=== PATIENT | male | born 1985 | race Caucasian/White ===

== ENCOUNTER 2018-03-23 20:12 | Inpatient (IN) | payer BC ==
[~2018-03-23 20:12] MED LIST: ISOVUE-370 76%-LOCM 1 ML ONE
[2018-03-23] MEDS ORDERED: Morphine 10 MG/ML VIAL ONE (20:40)
[2018-03-23] MEDS ORDERED: Ondansetron HCl/PF 4 MG/2 ML Vial ONE (20:40)
[2018-03-23 20:56] LABS: ALT (SGPT) 39 U/L (8-55); AST (SGOT) 19 U/L (5-34); Albumin 4.5 g/dL (3.5-5.0); Alkaline Phosphatase 50 U/L (40-150); Anion Gap 15 mmol/L (10-20); BUN (Urea Nitrogen) 20 mg/dL (8.9-20.6); Bilirubin, Total 2.3 mg/dL (0.2-1.2); Calc. Creatinine Clearance 0 mL/min (70-130); Calcium 8.6 mg/dL (7.8-10.44); Carbon Dioxide 20 mmol/L (22-29); Chloride 102 mmol/L (98-107); Estimated GFR-MDRD 89; Globulin 2.8 g/dL (2.4-3.5); Glucose 110 mg/dL (70-105); Lipase 8 U/L (8-78); Potassium 3.4 mmol/L (3.5-5.1); Protein, Total 7.3 g/dL (6.0-8.3); Sodium 134 mmol/L (136-145)
[2018-03-23 21:16] LABS: Hemoglobin 14.9 g/dL (14.0-18.0); Mean Corpuscular HGB CONC 34.7 g/dL (32.0-36.0); Mean Corpuscular Hemoglobin 32.5 pg (27.0-31.0); Mean Corpuscular Volume 93.6 fL (78.0-98.0); Mean Platelet Volume 6.5 fL (7.4-10.4); Platelet Count 324 thou/uL (130-400); RBC Distribution Width 11.7 % (11.5-14.5); Red Blood Cell (RBC) Count 4.59 mill/uL (4.70-6.10); White Blood Cell (WBC) Count 12.6 thou/uL (4.8-10.8)
[2018-03-23] MEDS ORDERED: metroNIDAZOLE 500 MG/100 ML BAG ONE (21:41)
[2018-03-23 21:43] LABS: Band 18 % (5-11); Lymphocytes 8 % (21-51); MDiff Complete? YES; Monocytes 5 % (0-10); Neutrophil 69 % (42-75)
--- NOTE | 2018-03-23 21:43 | RAD ---
PORTABLE AP CHEST X-RAY 03/23/18 HISTORY: Abdominal cramping and bilateral flank pain. Nausea, vomiting and diarrhea. FINDINGS: The cardiac silhouette is magnified by projection. Pulmonary vasculature is within normal limits. The lungs are clear. [place] screws overlie the left humeral head. IMPRESSION: No acute cardiopulmonary process. POS: [facility]
--- NOTE | 2018-03-23 22:03 | CT ---
CT ABDOMEN AND PELVIS WITH IV CONTRAST: 03/23/18 HISTORY: Abdominal cramping and pain. Bilateral flank pain. Nausea and vomiting and diarrhea since last night. COMPARISON: None available. FINDINGS: There is dependent bibasilar atelectasis. The osseous structures are intact. There is decreased attenuation of the liver likely related to diffuse fatty infiltration. The spleen, pancreas, bilateral adrenal glands, kidneys, abdominal aorta, and decompressed urinary bl adder demonstrate a normal CT appearance. The colon is fluid filled but not dilated. The appendix is visualized and normal in caliber. Loops of small bowel are also normal in caliber. No free fluid or fluid collection is seen in the abdomen or pelvis. No enlarged lymph nodes are seen by CT size criteria. IMPRESSION: 1. No acute findings are seen in the abdomen or pelvis. 2. Diffuse fatty infiltration of the liver. The liver is enlarged in craniocaudal dimensions venus suring 23.8 cm. 3. Colon is fluid filled but not dilated. 4. No CT evidence of appendicitis. 5. Small fat containing right inguinal hernia. POS: [facility]
[2018-03-23 22:14] LABS: Bilirubin Negative (Negative); Blood, Urine Small (Negative); Clarity CLEAR (Clear); Glucose, Urine (Dipstick) Negative (Negative); Leukocyte Negative (Negative); Nitrite Negative (Negative); Protein, Urine (Dipstick) Negative (Neg-Trace); Urobilinogen 0.2 mg/dL (0.2-1.0); pH, Urine 5.5 (5.0-9.0)
[2018-03-23 22:17] LABS: Bacteria/HPF None Seen HPF (None Seen); Hyaline Casts/LPF 0-3 HYALINE CAST LPF (0-3 Hyaline); Pathc Cast-AUWi Flag 0.43 (0-2.49); Squamous Epithelial None Seen HPF (0-3); WBC/HPF 0-3 HPF (0-3)
[2018-03-23 22:48] LABS: Specific Gravity, Urine Greater than 1.060 (1.002-1.036)
[2018-03-24 00:29] LABS: Lactic Acid 1.6 mmol/L (0.5-2.2)
[2018-03-24] MEDS ORDERED: Ondansetron HCl/PF 4 MG/2 ML Vial IVP PRN (01:05)
[2018-03-24] MEDS ORDERED: Ondansetron ODT 4 MG TAB SL PRN (01:05)
[2018-03-24] MEDS: Sodium Chloride 0.9% 1,000 ML IV SCH ×5 (01:16→21:36)
[2018-03-24 01:24] VITALS: BMI 31.7
[2018-03-24] MEDS ORDERED: metroNIDAZOLE 500 MG in Premix Bag 1 BAG IVPB SCH (06:00)
[2018-03-24 07:05] LABS: Hemoglobin 13.1 g/dL (14.0-18.0); Mean Corpuscular HGB CONC 34.2 g/dL (32.0-36.0); Mean Corpuscular Hemoglobin 32.5 pg (27.0-31.0); Mean Platelet Volume 6.9 fL (7.4-10.4); Platelet Count 270 thou/uL (130-400); RBC Distribution Width 11.7 % (11.5-14.5); Red Blood Cell (RBC) Count 4.02 mill/uL (4.70-6.10); White Blood Cell (WBC) Count 9.5 thou/uL (4.8-10.8)
[2018-03-24 09:01] LABS: Band 27 % (5-11); Lymphocytes 16 % (21-51); MDiff Complete? YES; Metamyelocyte 1 % (0-0); Monocytes 6 % (0-10); Neutrophil 49 % (42-75); PLT Morphology Comment Appears Adequate; Reactive Lymphocytes 1 % (0-10); Toxic Granulation SLIGHT; Vacuoles SLIGHT
[2018-03-24] MEDS ORDERED: Loperamide HCl 2 MG CAP PO PRN (09:58)
--- NOTE | 2018-03-24 10:57 | HP ---
ADMITTING PHYSICIAN: Freddy Alves M.D. HISTORY OF PRESENT ILLNESS: The patient is a 32-year-old male who presented to the emergency room co mplaining of nausea, vomiting, diarrhea, abdominal pain. He has been noticing symptoms for approxima tely 36 hours. The patient reports prior to becoming sick he had eaten some sushi. He noted after t hat he began having lower back pain associated with vomiting and progressing into diarrhea. He felt like he may have passed some blood in his stool. He continued to have this, he has had up to 12 epis odes of diarrhea with vomiting. He felt like he was becoming weak, dehydrated and he brought himself to the emergency room. In the ER, he was found to be slightly hypotensive, tachycardic with a tempe rature of 100.2. He was placed on IV fluids. Otherwise, no other medical issues were noted. He has not noted any recent foreign travel. He does note he ate sushi. He also notes he ate some [employer] as well. Otherwise, no other medical compl aints. No cough, sore throat. He does note, like I said, some bilateral back pain. He states, "I h urt in my kidneys," but no pain with urination is otherwise noted. Otherwise, no other medical compl aints. ALLERGIES: He has no medication allergies. CURRENT MEDICATIONS: Claritin as needed for seasonal allergies. PAST MEDICAL HISTORY: He has had previous history of shoulder scoping for surgery. Medical history is otherwise positive for allergic rhinitis. FAMILY HISTORY: Noncontributory. SOCIAL/PERSONAL HISTORY: He is . He does not smoke. He drinks alcohol socially. REVIEW OF SYSTEMS: GASTROINTESTINAL: Positive as above. GENITOURINARY: Negative. CARDIOVASCULAR: Negative. RESPIRATORY: Negative. NEUROLOGIC: Otherwise, negative. PHYSICAL EXAMINATION: VITAL SIGNS: Temperature 100.3, pulse 115, respirations 18, O2 sats 95, BP 98/58. HEENT: Normocephalic, atraumatic. Sclerae and conjunctivae clear. NECK: Supple, full range of motion, no masses. LUNGS: Clear. CARDIOVASCULAR: Heart reveals a regular rate and rhythm without murmur, gallops or rubs, although th ere is a tachycardia, otherwise noted. ABDOMEN: Soft. There is minimal tenderness noted to the left and right lower quadrant area without rebound or guarding Bowel sounds are present and active. No hepatosplenomegaly is noted. EXTREMITIES: No evidence of clubbing, edema or cyanosis. SKIN: No lesions or rashes otherwise noted. NEUROLOGICAL: He is alert and oriented x3. LABORATORY: His admission hemoglobin is 14.9, hematocrit 43.0, white blood count 12.6 with 69 neutro phils, 18 bands, 8 lymphs. Sodium 134, potassium 3.4, chloride 102, CO2 20, BUN 20, creatinine 0.97. Lactic acid is 2.8, it has now decreased down to 1.6. Urinalysis otherwise clear. CT abdomen, no acute finding, diffuse fatty infiltration of liver. IMPRESSION: This is a 32-year-old male presents with probable colitis, would suspect some type of en teric species, possibly related to sushi ingestion. PLAN: 1. Blood cultures have been obtained, unfortunately no stool cultures have been obtained. 2. He is currently on Levaquin and Flagyl. We will continue those antibiotics for the time being. 3. Continue IV fluids. 4. Control nausea with ondansetron. 5. I have discussed the findings with the patient, need for hospitalization. He is in agreement.
[2018-03-24] MEDS: Acetaminophen 325 MG TAB PO PRN ×2 (12:50→20:20)
[2018-03-24] MEDS: metroNIDAZOLE 500 MG in Premix Bag 1 BAG IVPB SCH ×2 (13:57→21:35)
[2018-03-25 04:33] LABS: Anion Gap 13 mmol/L (10-20); BUN (Urea Nitrogen) 6 mg/dL (8.9-20.6); Calc. Creatinine Clearance 214 mL/min (70-130); Calcium 8.2 mg/dL (7.8-10.44); Carbon Dioxide 24 mmol/L (22-29); Chloride 104 mmol/L (98-107); Estimated GFR-MDRD Greater than 90; Glucose 100 mg/dL (70-105); Potassium 3.5 mmol/L (3.5-5.1); Sodium 137 mmol/L (136-145)
[2018-03-25 04:54] LABS: Band 6 % (5-11); Eosinophils 1 % (0-10); Hemoglobin 12.7 g/dL (14.0-18.0); Lymphocytes 21 % (21-51); MDiff Complete? YES; Mean Corpuscular HGB CONC 35.4 g/dL (32.0-36.0); Mean Corpuscular Hemoglobin 33.3 pg (27.0-31.0); Mean Corpuscular Volume 94.1 fL (78.0-98.0); Mean Platelet Volume 6.5 fL (7.4-10.4); Monocytes 9 % (0-10); Neutrophil 63 % (42-75); PLT Morphology Comment Appears Adequate; Platelet Count 240 thou/uL (130-400); RBC Distribution Width 11.4 % (11.5-14.5); Red Blood Cell (RBC) Count 3.81 mill/uL (4.70-6.10); White Blood Cell (WBC) Count 9.5 thou/uL (4.8-10.8)
[2018-03-25] MEDS: Acetaminophen 325 MG TAB PO PRN ×3 (05:06→19:47)
[2018-03-25] MEDS: metroNIDAZOLE 500 MG in Premix Bag 1 BAG IVPB SCH ×3 (05:06→21:26)
[2018-03-25] MEDS: Sodium Chloride 0.9% 1,000 ML IV SCH ×5 (05:08→20:30)
--- NOTE | 2018-03-25 07:53 | PRG ---
DATE OF SERVICE: 03/25/2018 Mr. Walters is feeling better. He does report some central chest pain yesterday. He states all the p ain is gone now. He felt like someone was sitting on his chest. Otherwise, he states he is feeling better. He has had no further vomiting. The diarrhea stopped. He has not been able to collect a st ool specimen. PHYSICAL EXAMINATION: VITAL SIGNS: Temperature 98.3, pulse 92, BP 115/79. LUNGS: Clear. CHEST: Reveals no tenderness. ABDOMEN: Soft, bowel sounds present and active. VITAL SIGNS: His T-max yesterday 101.4, he is now afebrile. LABORATORY: Microbiology: Urine culture, no growth. Blood culture, no growth. IMPRESSION: 1. Probably gastroenteritis, infectious. still suspect some type of food contamination. 2. Chest pain. PLAN: 1. Patient will have CT angio of the chest today. 2. We will get SCDs applied. 3. Continue current treatment regimen of levofloxacin and Flagyl.
--- NOTE | 2018-03-25 08:02 | EKG ---
Test Reason : C/O CHEST PAIN Blood Pressure : / mmHG Vent. Rate : 117 BPM Atrial Rate : 117 BPM P-R Int : 152 ms QRS Dur : 100 ms QT Int : 332 ms P-R-T Axes : 052 059 038 degrees QTc Int : 463 ms Sinus tachycardia repolarization variant st changes Otherwise normal ECG When compared with ECG of 23-MAR-2018 20:33, (Unconfirmed) Questionable change in QRS axis Confirmed by DR. Brigitte ESPARZA ([id number]) on 03/25/2018 8:02:05 AM Referred By: CECILIO PERDOMO Confirmed By:DR. Brigitte ESPARZA
--- NOTE | 2018-03-25 10:41 | CT ---
CT ANGIO OF CHEST PERFORMED WITH INTRAVENOUS CONTRAST ENHANCEMENT WITH 3D RECONSTRUCTIONS. HISTORY: Shortness of breath, chest pressure, and tightness and chest pain. COMPARISON: A 03/23/18 CT of the abdomen. FINDINGS: There is worsening bibasilar atelectatic lung change is seen as compared to the previous CT of the ab domen. There is no pleural effusion. Changes are slightly grater in the right lung base. AP dimension of the ascending thoracic aorta is 4.0 cm. I do not see any signs of dissection. There is no significant mediastinal, hilar, or axillary adenopathy. There is good pulmonary artery opacification obtained, there is no CT evidence for pulmonary embolus. There are diffuse fatty changes of the liver. IMPRESSION: 1. Worsening bibasilar atelectasis. 2. No CT evidence of pulmonary embolus. 3. AP dimension of the ascending aorta is 4.0 cm. 4. Diffuse fatty changes of the liver. POS: [facility]
[2018-03-25] MEDS ORDERED: ISOVUE-370 76%-LOCM 1 ML ONE (14:19)
[2018-03-26] MEDS: metroNIDAZOLE 500 MG in Premix Bag 1 BAG IVPB SCH (05:45)
[2018-03-26 07:32] VITALS: BP 126/88; TEMP 98
--- NOTE | 2018-03-26 08:03 | PRG ---
DATE OF SERVICE: 03/26/2018 Mr. Walters is doing well, he is tolerating all p.o. intake well. He did not run any fever last night , he is feeling much better. Microbiology test, all cultures are negative. PHYSICAL EXAMINATION: VITAL SIGNS: Temperature 99.3, BP 114/77. LUNGS: Clear. HEART: Reveals no murmur. ABDOMEN: Soft, nontender. IMPRESSION: Resolving gastroenteritis. PLAN: We will switch to p.o. antibiotics. Possible discharge later today.
[2018-03-26] MEDS ORDERED: metroNIDAZOLE 500 MG TAB PO SCH (09:00)
--- NOTE | 2018-03-26 20:39 | DIS ---
DATE OF ADMISSION: 03/24/2018 DATE OF DISCHARGE: 03/26/2018 DISCHARGE DIAGNOSIS: Gastroenteritis, probably bacterial. ADMITTING PHYSICIAN: Dr. Freddy Alves [facility] SUMMARY: The patient is a 32-year-old male, who presented to the emergency room with profus e vomiting, diarrhea for approximately 24-36 hours prior to admission. He was admitted to the hospit al with a diagnosis of gastroenteritis, probably a bacterial origin. The patient was placed on IV Le vaquin and Flagyl. He had normal hospital progression with his fever reducing over this hospitalizat ion. Blood cultures remained negative. Stool cultures and stool studies could not be obtained becau se the patient's diarrhea stopped after admission to the hospital. He had one episode of chest pain during his hospitalization. CT angio of the chest was performed which was normal. He was able to be discharged home. DISCHARGE MEDICATIONS: Levaquin 500 mg 1 tablet p.o. daily as well as metronidazole 500 mg p.o. t.i. d. He will be seen back in followup on a p.r.n. basis. He is released back to work.
== END 2018-03-26 14:37 | disposition home or self-care (01) | DRG 373 ==
LOC: ERS 20:12 → T4-B 22:44 → OBSVTOIN 22:44
PROVIDERS: ADMIT Family Medicine; ATTEND Family Medicine
DX: A04.9 Bacterial intestinal infection, unspecified (principal); K52.9 Noninfective gastroenteritis and colitis, unspecified; R07.9 Chest pain, unspecified
CPT/HCPCS: 36415; 71045; 71275; 74177; 80048; 80053; 81003; 81015; 82550; 83605; 83690; 85025; 87040; 87086; 93005; 93010; 96361; 96365; 96367; 96375; 96376; A4216; J1956; J2270; J2405

== ENCOUNTER 2022-06-30 19:04 | Emergency (ER) | payer BC ==
[2022-06-30 21:00] LABS: #Eosinphils 0.4 thou/uL (0.0-0.7); #Lymphocytes 2.6 thou/uL (1.20-3.40); #Monocytes 1.6 thou/uL (0.11-0.59); #Neutrophils 10.9 thou/uL (1.40-6.50); %Basophils 0.3 % (0.0-1.0); %Eosinophils 2.6 % (0.0-10.0); %Lymphocytes 16.8 % (21.0-51.0); %Monocytes 10.5 % (0.0-10.0); %Neutrophils 69.9 % (42.0-75.0); Hemoglobin 15.8 g/dL (14.0-18.0); Mean Corpuscular HGB CONC 34.1 g/dL (32.0-36.0); Mean Corpuscular Hemoglobin 32.3 pg (27.0-31.0); Mean Corpuscular Volume 94.9 fl (78.0-98.0); Mean Platelet Volume 6.4 fL (7.4-10.4); Platelet Count 356 10x3/uL (130-400); RBC Distribution Width 11.7 % (11.5-14.5); Red Blood Cell (RBC) Count 4.88 mill/uL (4.70-6.10); White Blood Cell (WBC) Count 15.7 10x3/uL (4.8-10.8)
[2022-06-30 21:14] LABS: ALT (SGPT) 26 U/L (8-55); AST (SGOT) 17 U/L (5-34); Albumin 4.7 g/dL (3.5-5.0); Alkaline Phosphatase 59 U/L (40-110); Anion Gap 14 mmol/L (10-20); BUN (Urea Nitrogen) 12 mg/dL (8.9-20.6); Bilirubin, Total 2.3 mg/dL (0.2-1.2); Calc. Creatinine Clearance 0 mL/min (70-130); Calcium 9.3 mg/dL (7.8-10.44); Carbon Dioxide 25 mmol/L (22-29); Chloride 103 mmol/L (98-107); Estimated GFR 113; Globulin 2.8 g/dL (2.4-3.5); Glucose 95 mg/dL (70-105); Magnesium 1.9 mg/dL (1.6-2.6); Potassium 4.1 mmol/L (3.5-5.1); Protein, Total 7.5 g/dL (6.0-8.3); Sodium 138 mmol/L (136-145)
[2022-06-30] MEDS ORDERED: Ketorolac Tromethamine 30 MG/ML VIAL ONE (22:49)
[2022-06-30] MEDS ORDERED: Acetaminophen 500 MG TAB ONE (22:49)
[2022-06-30 23:46] LABS: SARS-CoV-2 NAA Rapid Test Not Detected (NotDetected)
[2022-07-01] MEDS ORDERED: Iopamidol-370 76% 500 ML 1 ML ONE (11:35)
== END 2022-07-01 01:28 | disposition home or self-care (01) ==
LOC: ERS 19:04
DX: R50.9 Fever, unspecified (principal); R07.9 Chest pain, unspecified; Z87.891 Personal history of nicotine dependence; Z20.822 Contact with and (suspected) exposure to COVID-19
CPT/HCPCS: 36415; 71045; 71275; 80053; 83605; 83735; 84484; 85025; 85379; 93005; 96374; J1885; Q9967